=== PATIENT | female | born 1955 | race African-American/Black ===

== ENCOUNTER → 2016-08-31 | Outpatient (CLI) | payer OTHER ==
--- NOTE | ~2016-08-31 | MY29 ---
[facility] RADIOLOGY TEXT RESULTS PATIENT: RASHI DUKE LOCATION: [facility] : 59 UNIT #: [id number] AGE: [address]: RAIN LYNN MD SEX: F ORDER DR: [id number] [facility]. [place], [place] [address] [id number] O MR#: [id number] #: [id number] NAME: RASHI DUKE : 1955 SEX: F STUDY DATE/TIME: 08/31/2016 8:27 UNIT: [facility] ROOM: STUDY DESCRIPTION: MY SHANNAN SCREENING W/ CAD BILAT Attending Physician: Rain Lynn M.D. Referring Physician: Rain Lynn M.D. Ordering Physician: Rain Lynn M.D. Primary Care Physician: Rain Lynn M.D. MEDICAL IMAGING REPORT This report is preliminary unless electronic signature is present EXAM Digital screening mammogram, 08/31/2016 HISTORY 61-year-old woman no risk elevation. Annual screening. COMPARISON 01/10/2003, 09/20/2012 FINDINGS Digital imaging of each breast was completed utilizing screening protocol. Review includes FDA-approved CAD device. Breast parenchyma is predominantly fatty replaced. Small circumscribed nodule right subareolar location is stable to less conspicuous. I see no suspicious breast mass. Intramammary lymph node left breast is stable. There are no interval occurring microcalcifications and no suspicious architectural distortion. IMPRESSION Negative mammogram. Annual screening recommended. Patients over the age of 40 are entered into a reminder system with target due date for the next mammogram. A result letter will also be sent to the patient. BIRADS: 1 Negative Dictated by... Fady Leach M.D. THIS IS AN ELECTRONICALLY VERIFIED REPORT Fady Leach M.D. at 08/31/2016 1:10 PM [facility] A [facility] RADIOLOGY TEXT RESULTS PATIENT: RASHI DUKE LOCATION: [facility] #: [id number] : 59 UNIT #: [id number] AGE: [address]: RAIN LYNN MD SEX: F ORDER DR: TD: 08/31/2016 12:08 JOB #: [id number] MEDICAL IMAGING REPORT Page 1 of 1 COPY
== END | disposition home or self-care (01) ==
LOC: CWCC 08:07
DX: Z12.31 Encounter for screening mammogram for malignant neoplasm of breast (principal)
CPT/HCPCS: G0202